=== PATIENT | male | born 1965 | race Caucasian/White ===

== ENCOUNTER 2021-02-03 09:25 | Outpatient (REF) | payer OTHER, SELFPAY ==
[2021-02-03 10:14] LABS: MANUAL DIFF FLAG NO
[2021-02-03 10:22] LABS: Basophils Absolute Auto 0.1 X10*3/uL (0.0-0.2); Basophils Percent Auto 0.6 % (0-2); Eosinophils Absolute Auto 0.5 X10*3/uL (0.0-0.4); Eosinophils Percent Auto 5.5 % (0-4); Hematocrit 43.3 % (42-52); Hemoglobin 14.7 g/dl (14.0-18.0); Imm Gran Abs Auto 0.03 X10*3/uL (0.00-0.03); Imm Gran Pct Auto 0.4 % (0.0-0.4); Lymphocytes Absolute Auto 2.6 X10*3/uL (1.2-4.9); Lymphocytes Percent Auto 29.9 % (20-40); Mean Corpuscular HGB Conc 33.9 g/dl (31.0-36.0); Mean Corpuscular Hemoglobin 32.5 pg (27.0-33.0); Mean Corpuscular Volume 95.6 fL (80-98); Monocytes Absolute Auto 0.7 X10*3/uL (0.1-1.2); Monocytes Percent Auto 8.2 % (2-11); Neutrophils Absolute Auto 4.7 X10*3/uL (2.0-8.3); Neutrophils Percent Auto 55.4 % (45-73); Platelet Count 276 X10*3/uL (160-400); Red Blood Count 4.53 X10*6/uL (4.60-5.80); Red Cell Distribution Width 13.7 % (11.0-16.0); White Blood Count 8.5 X10*3/uL (4.8-10.8)
[2021-02-03 10:41] LABS: Alanine Aminotransferase 17 U/L (0-40); Albumin Level 4.3 g/dL (3.5-5.0); Alkaline Phosphatase 95 U/L (39-117); Anion Gap 15 (12-20); Aspartate Amino Transferase 15 U/L (5-37); Bilirubin Total 0.3 mg/dL (0.0-1.0); Blood Urea Nitrogen 14 mg/dL (9-16); Calcium 9.6 mg/dL (8.4-10.2); Carbon Dioxide 23 mmol/L (22-29); Chloride 107 mmol/L (96-108); Cholesterol 199 mg/dL; Estimated Glomerular Filt Rate > 60; Glucose Fasting 95 mg/dL (60-99); HDL Cholesterol 59 mg/dL; LDL Cholesterol Calculated 98 mg/dl; Potassium 4.5 mmol/L (3.3-5.1); Sodium 140 mmol/L (135-145); Total Protein 6.7 g/dL (6.5-8.0); Triglycerides 212 mg/dL
== END 2021-02-03 09:26 | disposition home or self-care (01) ==
LOC: HO.LAB 09:25
PROVIDERS: PCP Internal Medicine; Visit Provider Internal Medicine
DX: Z12.5 Encounter for screening for malignant neoplasm of prostate (principal); M17.0 Bilateral primary osteoarthritis of knee; K21.9 Gastro-esophageal reflux disease without esophagitis; I25.10 Atherosclerotic heart disease of native coronary artery without angina pectoris
CPT/HCPCS: 36415; 80053; 80061; 84153; 85025

== ENCOUNTER 2021-10-17 10:32 | Outpatient (REF) | payer OTHER, SELFPAY ==
--- NOTE | ~2021-10-17 | XR_ITS ---
EXAMINATION: XR CHEST CLINICAL INFORMATION: Cough, question lesion. COMPARISON: None TECHNIQUE: 2 views of the chest were obtained. FINDINGS: There is some mildly increased density seen at the left lung base however this appears to be related to overlying soft tissues with the PA film being somewhat obliqued. No definite acute parenchymal disease is seen. No pneumothorax or pleural effusion. Heart normal size. No evidence of pulmonary edema. XR/XR chest 2V IMPRESSION: No significant acute parenchymal disease.
[2021-10-17 11:18] LABS: MANUAL DIFF FLAG NO
[2021-10-17 12:13] LABS: Basophils Percent Auto 0.4 % (0-2); Eosinophils Absolute Auto 0.3 X10*3/uL (0.0-0.4); Eosinophils Percent Auto 2.9 % (0-4); Hematocrit 44.3 % (42.0-52.0); Hemoglobin 14.8 g/dl (14.0-18.0); Imm Gran Abs Auto 0.05 X10*3/uL (0.00-0.03); Imm Gran Pct Auto 0.6 % (0.0-0.4); Lymphocytes Absolute Auto 2.1 X10*3/uL (1.2-4.9); Lymphocytes Percent Auto 23.8 % (20-40); Mean Corpuscular HGB Conc 33.4 g/dl (31.0-36.0); Mean Corpuscular Hemoglobin 32.2 pg (27.0-33.0); Mean Corpuscular Volume 96.5 fL (80.0-98.0); Mean Platelet Volume 9.8 fL (9.4-12.4); Monocytes Absolute Auto 0.7 X10*3/uL (0.1-1.2); Monocytes Percent Auto 8.2 % (2-11); Neutrophils Absolute Auto 5.8 x10*3/uL (2.0-8.3); Neutrophils Percent Auto 64.1 % (45-73); Platelet Count 308 X10*3/uL (160-400); Red Blood Count 4.59 X10*6/uL (4.60-5.80); Red Cell Distribution Width 13.5 % (11.0-16.0)
[2021-10-17 12:27] LABS: Appearance Urine CLEAR; Color Urine YELLOW; Glucose Urine UA NEG (NEG); Leukocyte Esterase Urine NEG (NEG); Nitrite Urine NEG (NEG); PH 5.5 (5.0-8.0); Urine Blood NEG (NEG); Urine Ketones NEG (NEG); Urine Protein NEG (NEG-TRACE)
[2021-10-17 13:10] LABS: Alanine Aminotransferase 41 U/L (0-40); Albumin Level 4.3 g/dL (3.5-5.0); Alkaline Phosphatase 96 U/L (39-117); Anion Gap 12 (12-20); Aspartate Amino Transferase 26 U/L (5-37); Bilirubin Total 0.3 mg/dL (0.0-1.0); Blood Urea Nitrogen 13 mg/dL (9-16); C Reactive Protein 1.67 mg/dL (< or = 0.50); Calcium 9.6 mg/dL (8.4-10.2); Carbon Dioxide 26 mmol/L (22-29); Chloride 104 mmol/L (96-108); Estimated Glomerular Filt Rate > 60; Glucose Random 91 mg/dL (60-115); Potassium 4.6 mmol/L (3.3-5.1); Sodium 137 mmol/L (135-145); Total Protein 6.9 g/dL (6.5-8.0)
[2021-10-17 13:11] LABS: Prostate Specific Antigen 0.55 ng/mL (<0.05-4.0)
[2021-10-17 13:25] LABS: Vitamin B12 359 pg/mL (200-900)
[2021-10-17 13:27] LABS: Rheumatoid Factor < 15.0 IU/mL (<15.0)
[2021-10-19 13:46] LABS: Anti Nuclear Antibody Screen NEGATIVE (NEGATIVE)
== END 2021-10-17 10:33 | disposition home or self-care (01) ==
LOC: HO.XRAY 10:32
PROVIDERS: PCP Internal Medicine; Visit Provider Internal Medicine
DX: Z12.5 Encounter for screening for malignant neoplasm of prostate (principal); M17.0 Bilateral primary osteoarthritis of knee; K21.9 Gastro-esophageal reflux disease without esophagitis; Z72.89 Other problems related to lifestyle; M25.50 Pain in unspecified joint; Z72.0 Tobacco use
CPT/HCPCS: 36415; 71046; 80053; 81003; 82607; 84153; 85025; 86038; 86039; 86140; 86431

== ENCOUNTER 2021-11-09 11:53 | Outpatient (REF) | payer OTHER, SELFPAY ==
--- NOTE | ~2021-11-09 | XR_ITS ---
EXAMINATION: 1. RADIOGRAPHS RIGHT SHOULDER 2. RADIOGRAPHS LEFT SHOULDER 3. RADIOGRAPHS RIGHT KNEE 4. RADIOGRAPHS LEFT KNEE CLINICAL INFORMATION: Bilateral shoulder and knee pain for 3 to 4 months. COMPARISON: None TECHNIQUE: 4 views of each shoulder and 4 views of each knee were obtained. FINDINGS: Right shoulder: Visualized portion of the proximal right humerus demonstrate no fracture. Humeral head demonstrates good articulation with the glenoid fossa. The right acromioclavicular joint demonstrates only minimal degenerative changes. Visualized right-sided ribs and lung parenchyma are unremarkable. Left shoulder: Visualized portion of the proximal left humerus demonstrate no fracture. Humeral head demonstrates good articulation with the glenoid fossa. Mild hypertrophic changes of the left acromioclavicular joint. Visualized left-sided ribs and lung parenchyma are unremarkable. Right knee: Patient is status post cruciate ligament repair. Joint spaces are maintained. No suprapatellar joint effusion. Small tricompartmental marginal osteophytes. No focal soft tissue swelling of the anterior knee. Left knee: No fracture or dislocation. No suprapatellar joint effusion. Mildly decreased medial joint space height. Tiny tricompartmental marginal osteophytes. XR/XR knee RT 4V IMPRESSION: -mild degenerative changes of both shoulders without fracture or dislocation. -Mild degenerative changes of both knees. -Postsurgical changes of the right knee.
--- NOTE | ~2021-11-09 | XR_ITS ---
EXAMINATION: 1. RADIOGRAPHS RIGHT SHOULDER 2. RADIOGRAPHS LEFT SHOULDER 3. RADIOGRAPHS RIGHT KNEE 4. RADIOGRAPHS LEFT KNEE CLINICAL INFORMATION: Bilateral shoulder and knee pain for 3 to 4 months. COMPARISON: None TECHNIQUE: 4 views of each shoulder and 4 views of each knee were obtained. FINDINGS: Right shoulder: Visualized portion of the proximal right humerus demonstrate no fracture. Humeral head demonstrates good articulation with the glenoid fossa. The right acromioclavicular joint demonstrates only minimal degenerative changes. Visualized right-sided ribs and lung parenchyma are unremarkable. Left shoulder: Visualized portion of the proximal left humerus demonstrate no fracture. Humeral head demonstrates good articulation with the glenoid fossa. Mild hypertrophic changes of the left acromioclavicular joint. Visualized left-sided ribs and lung parenchyma are unremarkable. Right knee: Patient is status post cruciate ligament repair. Joint spaces are maintained. No suprapatellar joint effusion. Small tricompartmental marginal osteophytes. No focal soft tissue swelling of the anterior knee. Left knee: No fracture or dislocation. No suprapatellar joint effusion. Mildly decreased medial joint space height. Tiny tricompartmental marginal osteophytes. XR/XR shoulder RT min 2V IMPRESSION: -mild degenerative changes of both shoulders without fracture or dislocation. -Mild degenerative changes of both knees. -Postsurgical changes of the right knee.
--- NOTE | ~2021-11-09 | XR_ITS ---
EXAMINATION: 1. RADIOGRAPHS RIGHT SHOULDER 2. RADIOGRAPHS LEFT SHOULDER 3. RADIOGRAPHS RIGHT KNEE 4. RADIOGRAPHS LEFT KNEE CLINICAL INFORMATION: Bilateral shoulder and knee pain for 3 to 4 months. COMPARISON: None TECHNIQUE: 4 views of each shoulder and 4 views of each knee were obtained. FINDINGS: Right shoulder: Visualized portion of the proximal right humerus demonstrate no fracture. Humeral head demonstrates good articulation with the glenoid fossa. The right acromioclavicular joint demonstrates only minimal degenerative changes. Visualized right-sided ribs and lung parenchyma are unremarkable. Left shoulder: Visualized portion of the proximal left humerus demonstrate no fracture. Humeral head demonstrates good articulation with the glenoid fossa. Mild hypertrophic changes of the left acromioclavicular joint. Visualized left-sided ribs and lung parenchyma are unremarkable. Right knee: Patient is status post cruciate ligament repair. Joint spaces are maintained. No suprapatellar joint effusion. Small tricompartmental marginal osteophytes. No focal soft tissue swelling of the anterior knee. Left knee: No fracture or dislocation. No suprapatellar joint effusion. Mildly decreased medial joint space height. Tiny tricompartmental marginal osteophytes. XR/XR shoulder LT min 2V IMPRESSION: -mild degenerative changes of both shoulders without fracture or dislocation. -Mild degenerative changes of both knees. -Postsurgical changes of the right knee.
--- NOTE | ~2021-11-09 | XR_ITS ---
EXAMINATION: 1. RADIOGRAPHS RIGHT SHOULDER 2. RADIOGRAPHS LEFT SHOULDER 3. RADIOGRAPHS RIGHT KNEE 4. RADIOGRAPHS LEFT KNEE CLINICAL INFORMATION: Bilateral shoulder and knee pain for 3 to 4 months. COMPARISON: None TECHNIQUE: 4 views of each shoulder and 4 views of each knee were obtained. FINDINGS: Right shoulder: Visualized portion of the proximal right humerus demonstrate no fracture. Humeral head demonstrates good articulation with the glenoid fossa. The right acromioclavicular joint demonstrates only minimal degenerative changes. Visualized right-sided ribs and lung parenchyma are unremarkable. Left shoulder: Visualized portion of the proximal left humerus demonstrate no fracture. Humeral head demonstrates good articulation with the glenoid fossa. Mild hypertrophic changes of the left acromioclavicular joint. Visualized left-sided ribs and lung parenchyma are unremarkable. Right knee: Patient is status post cruciate ligament repair. Joint spaces are maintained. No suprapatellar joint effusion. Small tricompartmental marginal osteophytes. No focal soft tissue swelling of the anterior knee. Left knee: No fracture or dislocation. No suprapatellar joint effusion. Mildly decreased medial joint space height. Tiny tricompartmental marginal osteophytes. XR/XR knee LT 4V IMPRESSION: -mild degenerative changes of both shoulders without fracture or dislocation. -Mild degenerative changes of both knees. -Postsurgical changes of the right knee.
[2021-11-09 12:23] LABS: MANUAL DIFF FLAG NO
[2021-11-09 13:15] LABS: Basophils Percent Auto 0.3 % (0-2); Eosinophils Absolute Auto 0.4 X10*3/uL (0.0-0.4); Eosinophils Percent Auto 3.3 % (0-4); Hematocrit 41.2 % (42.0-52.0); Hemoglobin 13.6 g/dl (14.0-18.0); Imm Gran Abs Auto 0.08 X10*3/uL (0.00-0.03); Imm Gran Pct Auto 0.7 % (0.0-0.4); Lymphocytes Absolute Auto 2.4 X10*3/uL (1.2-4.9); Lymphocytes Percent Auto 20.5 % (20-40); Mean Corpuscular Hemoglobin 31.3 pg (27.0-33.0); Mean Corpuscular Volume 94.9 fL (80.0-98.0); Monocytes Absolute Auto 0.8 X10*3/uL (0.1-1.2); Monocytes Percent Auto 6.6 % (2-11); Neutrophils Percent Auto 68.6 % (45-73); Platelet Count 364 X10*3/uL (160-400); Red Blood Count 4.34 X10*6/uL (4.60-5.80); Red Cell Distribution Width 13.3 % (11.0-16.0); White Blood Count 11.6 X10*3/uL (4.8-10.8)
[2021-11-09 13:43] LABS: C Reactive Protein 1.47 mg/dL (< or = 0.50); Iron 72 mcg/dL (45-160)
[2021-11-09 13:59] LABS: Erythrocyte Sedimentation Rate 32 MM/HR (0-15); Percent Iron Saturation 20 % (15-50); Total Iron Binding Capacity 357 mcg/dL (228-428); Unsaturated Iron Binding 285 ug/dL
[2021-11-13 05:02] LABS: Lyme Abs Screen <0.90 index
== END 2021-11-09 11:54 | disposition home or self-care (01) ==
LOC: HO.LAB 11:53
PROVIDERS: PCP Internal Medicine; Visit Provider Internal Medicine
DX: D64.9 Anemia, unspecified (principal); M25.511 Pain in right shoulder; M25.512 Pain in left shoulder; M79.10 Myalgia, unspecified site
CPT/HCPCS: 36415; 73030; 73564; 82550; 83540; 84550; 85025; 85652; 86140; 86617; 86618

== ENCOUNTER 2022-05-09 | Outpatient (REF) | payer OTHER, SELFPAY ==
--- NOTE | 2022-05-09 09:30 | EMG_ITS ---
Bilateral median and ulnar motor and sensory studies were performed. Bilateral radial and sensory studies were performed and paraspinal muscles were tested with a needle. IMPRESSION: Mild bilateral ulnar neuropathy across cubital tunnel. Median studies were normal. MD AMADEO Maria/[facility] / [id number]
== END 2022-05-09 00:01 | disposition home or self-care (01) ==
LOC: HO.NEURO
PROVIDERS: Visit Provider Internal Medicine
DX: M79.641 Pain in right hand (principal); M79.642 Pain in left hand; M25.531 Pain in right wrist; M25.532 Pain in left wrist
CPT/HCPCS: 95886; 95911